=== PATIENT | male | born 1995 | race Caucasian/White ===

== ENCOUNTER 2017-03-14 21:18 | Emergency (ER) | payer OTHER ==
[~2017-03-14 21:18] MED LIST: ALBU8.5H IH; CEPH500C24 PO; FLUT1DIS28 IH; LOR5/325 PO
--- NOTE | 2017-03-14 21:23 | ER Report ---
History and Physical Time Seen By MD: 21:23 HPI/ROS CHIEF COMPLAINT: asthma exacerbation HISTORY OF PRESENT ILLNESS: This is a 22 year old male. He is having difficulty breathing and chest pain. Started earlier today and has been worsening. He thinks that this may have been some exposure to dust while working on the house , or from slight upper respiratory infection as well. Central chest tightness. No fevers or chills. Has had some nasal congestion. Mild sore throat. Used inhalers and breathing treatments at home without relief. Mild nausea. No vomiting. Allergies: Coded Allergies: shellfish derived (Verified Allergy, Unknown, 03/14/17) Home Meds Active Scripts Prednisone (PREDNISONE) 20 Mg Tablet, 60 MG PO QDAY for 4 Days, #12 TAB 0 Refills Prov:MANUELITO SCHNEIDER MD 03/14/17 Reported Medications [albuterol nebulizer] No Conflict Check 03/14/17 Albuterol Sulfate 90 Mcg/Act (PROAIR HFA 90 MCG/ACT) 8.5 Gm Hfa.aer.ad, 2 PUFF IH Q4-6H, INHALER 06/05/15 Reviewed Nurses Notes: Yes Hx Smoking: No Smoking Status: Never Smoker Hx Substance Use Disorder: No Hx Alcohol Use: No Constitutional Vital Sign - Last 24 Hours 03/14/17 03/14/17 03/14/17 03/14/17 21:20 21:24 21:30 21:33 Temp 98.7 Pulse 95 B/P (MAP) 152/92 (112) 152/92 136/98 (111) Pulse Ox 100 96 O2 Delivery Room Air Room Air 03/14/17 03/14/17 03/14/17 03/14/17 21:40 21:48 22:00 22:18 Pulse 85 92 87 Resp 16 B/P (MAP) 136/90 (105) Pulse Ox 98 95 03/14/17 03/14/17 03/14/17 03/14/17 22:30 22:48 23:00 23:18 Pulse 89 85 Resp 16 B/P (MAP) 125/77 (93) 122/64 (83) 118/72 (87) Pulse Ox 94 92 O2 Delivery Room Air Physical Exam General Appearance: The patient is alert. Having some acute distress due to the difficulty breathing, but no airway compromise. Eyes: Pupils are equal, round. No pallor, injection or icterus. ENT: Mucous membranes are moist. Normal oral mucosa. Posterior oropharynx with post nasal drainage. Nasal mucosa with some mucous and erythema. Normal tympanic membranes and canals. Neck: Supple and non tender. No lymphadenopathy. Respiratory: Lungs with expiratory wheezing. There are no retractions or accessory muscle use. Cardiovascular: Regular rate and rhythm. No murmurs, gallops or rubs. Normal capillary refill. Gastrointestinal: Abdomen is soft and non tender. Nondistended. Normal active bowel sounds. Neurological: Alert and oriented x3. Skin: Warm and dry. No rashes. DIFFERENTIAL DIAGNOSIS: After history and physical exam, differential diagnosis was considered for asthma exacerbation. Medical Decision Making Data Points Result Diagram: 03/14/17212703/14/172127 Laboratory Hematology Test 03/14/17 00:00 03/14/17 21:28 D-Dimer Quantitative (PE/DVT) < 0.27 ug/ml (0-0.50) Red Blood Count 5.57 M/uL (4.00-5.60) Mean Corpuscular Volume 87.6 fL (80.0-96.0) Mean Corpuscular Hemoglobin 30.8 pg (26.0-33.0) Mean Corpuscular Hemoglobin Concent 35.2 g/dL (32.0-36.0) Red Cell Distribution Width 13.1 % (11.5-14.5) Mean Platelet Volume 10.1 fL (7.2-11.1) Neutrophils (%) (Auto) 68.7 % (39.4-72.5) Lymphocytes (%) (Auto) 21.7 % (17.6-49.6) Monocytes (%) (Auto) 5.1 % (4.1-12.4) Eosinophils (%) (Auto) 3.9 % (0.4-6.7) Basophils (%) (Auto) 0.6 % (0.3-1.4) Nucleated RBC Relative Count (auto) 0.1 /100WBC Neutrophils # (Auto) 10.4 K/uL (2.0-7.4) Lymphocytes # (Auto) 3.3 K/uL (1.3-3.6) Monocytes # (Auto) 0.8 K/uL (0.3-1.0) Eosinophils # (Auto) 0.6 K/uL (0.0-0.5) Basophils # (Auto) 0.1 K/uL (0.0-0.1) Nucleated RBC Absolute Count (auto) 0.01 K/uL Sodium Level 139 mmol/L (137-145) Potassium Level 3.7 mmol/L (3.5-5.0) Chloride Level 105 mmol/L (98-107) Carbon Dioxide Level 22 mmol/L (22-30) Blood Urea Nitrogen 14 mg/dl (9-21) Creatinine 0.80 mg/dl (0.66-1.25) Glomerular Filtration Rate Calc > 60.0 Random Glucose 85 mg/dl (75-110) Lactate 1.8 mmol/L (0.7-2.1) Calcium Level 9.1 mg/dl (8.4-10.2) Total Bilirubin 0.6 mg/dl (0.2-1.3) Aspartate Amino Transf (AST/SGOT) 28 U/L (0-35) Alanine Aminotransferase (ALT/SGPT) 40 U/L (0-56) Alkaline Phosphatase 73 U/L (0-126) C-Reactive Protein < 0.5 mg/dl (<1.0) Total Protein 8.0 gm/dl (6.3-8.2) Albumin 4.7 g/dl (3.5-5.0) Influenza Virus Type A (PCR) Negative (NEGATIVE) Influenza Virus Type B (PCR) Negative (NEGATIVE) Chemistry Test 03/14/17 00:00 03/14/17 21:28 D-Dimer Quantitative (PE/DVT) < 0.27 ug/ml (0-0.50) White Blood Count 15.1 k/uL (4.5-11.0) Red Blood Count 5.57 M/uL (4.00-5.60) Hemoglobin 17.2 g/dL (14.0-18.0) Hematocrit 48.8 % (42.0-52.0) Mean Corpuscular Volume 87.6 fL (80.0-96.0) Mean Corpuscular Hemoglobin 30.8 pg (26.0-33.0) Mean Corpuscular Hemoglobin Concent 35.2 g/dL (32.0-36.0) Red Cell Distribution Width 13.1 % (11.5-14.5) Platelet Count 160 K/uL (150-450) Mean Platelet Volume 10.1 fL (7.2-11.1) Neutrophils (%) (Auto) 68.7 % (39.4-72.5) Lymphocytes (%) (Auto) 21.7 % (17.6-49.6) Monocytes (%) (Auto) 5.1 % (4.1-12.4) Eosinophils (%) (Auto) 3.9 % (0.4-6.7) Basophils (%) (Auto) 0.6 % (0.3-1.4) Nucleated RBC Relative Count (auto) 0.1 /100WBC Neutrophils # (Auto) 10.4 K/uL (2.0-7.4) Lymphocytes # (Auto) 3.3 K/uL (1.3-3.6) Monocytes # (Auto) 0.8 K/uL (0.3-1.0) Eosinophils # (Auto) 0.6 K/uL (0.0-0.5) Basophils # (Auto) 0.1 K/uL (0.0-0.1) Nucleated RBC Absolute Count (auto) 0.01 K/uL Glomerular Filtration Rate Calc > 60.0 Lactate 1.8 mmol/L (0.7-2.1) Calcium Level 9.1 mg/dl (8.4-10.2) Total Bilirubin 0.6 mg/dl (0.2-1.3) Aspartate Amino Transf (AST/SGOT) 28 U/L (0-35) Alanine Aminotransferase (ALT/SGPT) 40 U/L (0-56) Alkaline Phosphatase 73 U/L (0-126) C-Reactive Protein < 0.5 mg/dl (<1.0) Total Protein 8.0 gm/dl (6.3-8.2) Albumin 4.7 g/dl (3.5-5.0) Influenza Virus Type A (PCR) Negative (NEGATIVE) Influenza Virus Type B (PCR) Negative (NEGATIVE) Coagulation Test 03/14/17 00:00 D-Dimer Quantitative (PE/DVT) < 0.27 ug/ml EKG/Imaging Imaging 2 VIEWS CHEST INDICATION: Right-sided chest pain. COMPARISON: None available FINDINGS: Cardiomediastinal silhouette and pulmonary vessels within normal limits. There is no focal infiltrate or lobar consolidation. There is no pneumothorax or pleural effusion. No nodule. Upper abdomen is unremarkable. No acute bony abnormality. Mild scoliotic curvature to the spine. IMPRESSION: 1. No acute cardiopulmonary process. Report Dictated By: Dileep Quiles at 03/14/2017 10:46 PM ED Course/Re-evaluation Clinical Indication for ER IV: IV Access ED Course Moderate improvement with DuoNeb. Solu-Medrol IV given. Morphine for chest pain and Zofran for nausea. Re-evaluated and repeated breathing treatment and pain medicine. Later had resolution of symptoms and breathing easily. Other studies unremarkable as noted. Will continue with oral prednisone for the next 4 days and keep using breathing treatments. Decision to Disposition Date: Mar 14, 2017 Decision to Disposition Time: 23:12 Depart Departure Latest Vital Signs Vital Signs Date Time Temp Pulse Resp B/P (MAP) Pulse Ox O2 Delivery O2 Flow Rate FiO2 03/14/17 23:18 85 16 118/72 (87) 92 Room Air 03/14/17 21:24 98.7 Impression: Primary Impression: Asthma exacerbation Condition: Improved Disposition: HOME OR SELF-CARE New Scripts Prednisone (PREDNISONE) 20 Mg Tablet 60 MG PO QDAY for 4 Days, #12 TAB 0 Refills Prov: MANUELITO SCHNEIDER MD 03/14/17 Patient Instructions: Asthma (ED), Moderate and Severe Persistent Asthma (ED) Additional Instructions: Take Prednisone 20mg tablets, take 3 tablets once a day for 4 more days. Keep using your inhaler and breathing treatments. Follow-up with your primary care provider for re-evaluation. Problem Qualifiers Primary Impression: Asthma exacerbation Asthma severity: moderate Asthma persistence: persistent Qualified Codes: J45.41 - Moderate persistent asthma with (acute) exacerbation MANUELITO SCHNEIDER MD Mar 14, 2017 21:23
[2017-03-14] MEDS ORDERED: ALBUTEROL/IPRATROPIUM 3 ML NEB ONE (21:29)
[2017-03-14] MEDS ORDERED: ONDANSETRON 4 MG/2 ML VIAL IVP ONE (21:30)
[2017-03-14] MEDS ORDERED: MORPHINE 2 MG/ML SYR IVP ONE ×2 (21:30→22:25)
[2017-03-14] MEDS ORDERED: methylPREDNIS SUCC 125 MG/2ML IVP ONE (21:30)
[2017-03-14] MEDS ORDERED: ALBUTEROL/IPRATROPIUM 3 ML NEB NEB ONE (21:30)
[2017-03-14 21:38] LABS: PLATELET COUNT, AUTOMATED 160 K/uL (150-450)
[2017-03-14] MEDS ORDERED: albuterol nebulizer (21:46)
--- NOTE | 2017-03-14 22:51 | RADIOLOGY IMAGING REPORT ---
FACILITY: [facility] PATIENT NAME: Carlo Chance : 1995 MR: [id number] V: [id number] EXAM DATE: ORDERING PHYSICIAN: MANUELITO SCHNEIDER TECHNOLOGIST: Location: [facility] - [place] Patient: Carlo Chance : 1995 Visit/Account:[id number] Date of Sevice: 03/14/2017 2 VIEWS CHEST INDICATION: Right-sided chest pain. COMPARISON: None available FINDINGS: Cardiomediastinal silhouette and pulmonary vessels within normal limits. There is no focal infiltrate or lobar consolidation. There is no pneumothorax or pleural effusion. No nodule. Upper abdomen is unremarkable. No acute bony abnormality. Mild scoliotic curvature to the spine. IMPRESSION: 1. No acute cardiopulmonary process. Report Dictated By: Dileep Quiles at 03/14/2017 10:46 PM Report E-Signed By: Dileep Quiles at 03/14/2017 10:48 PM WSN:[id number]
[2017-03-14] MEDS ORDERED: PRED20TA6 PO (23:14)
[2017-03-14] MEDS ORDERED: predniSONE 20 MG TAB PO ONE (23:15)
[2017-03-14 23:18] VITALS: BP 118/72
== END 2017-03-14 23:20 | disposition home or self-care (01) ==
LOC: ER 21:27
DX: J45.41 Moderate persistent asthma with (acute) exacerbation (principal)
CPT/HCPCS: 71046; 83605; 85025; 85379; 86140; 87502; 94640; 96374; 96375; 96376; 99284; J2270; J2405; J2930; J7512; J7620; 82040; 82247; 82310; 82374; 82435; 82565; 82947; 84075; 84132; 84155; 84295; 84450; 84460; 84520

== ENCOUNTER 2017-09-16 18:02 | Emergency (ER) | payer OTHER ==
[~2017-09-16 18:02] MED LIST changes: +PRED20TA6 PO; +albuterol nebulizer
--- NOTE | 2017-09-16 18:29 | ER Report ---
History and Physical Time Seen By MD: 18:28 Hx. of Stated Complaint: 2 DAYS AGO PT REPORTS ONSET OF LLQ PAIN RADIATING ACROSS ABDOMEN AND BACK WORSE WITH MOVEMENT, VOMITING HPI/ROS CHIEF COMPLAINT: Left lower quadrant abdominal pain HISTORY OF PRESENT ILLNESS: Patient is a 22-year-old male here with complaints of left lower quadrant abdominal pain with radiation to the back which is worse with movement and is associated with vomiting. Patient is afebrile at time of evaluation, hemodynamically stable. Patient denies chest pain, shortness of breath, difficulty urinating, hematuria. REVIEW OF SYSTEMS: Constitutional: No fever, no chills. Eyes: No discharge. ENT: No sore throat. Cardiovascular: No chest pain, no palpitations. Respiratory: No cough, no shortness of breath. Gastrointestinal: + LLQ abdominal pain, + vomiting. Genitourinary: No hematuria. Musculoskeletal: No back pain. Skin: No rashes. Neurological: No headache. Allergies: Coded Allergies: shellfish derived (Verified Allergy, Unknown, 03/14/17) Home Meds Active Scripts Tramadol Hcl (TRAMADOL HCL) 50 Mg Tablet, 50 MG PO Q6H Y for PAIN, #6 TAB 0 Refills Prov:LILI TRAMMELL DO 09/16/17 Reported Medications [albuterol nebulizer] No Conflict Check 03/14/17 Albuterol Sulfate 90 Mcg/Act (PROAIR HFA 90 MCG/ACT) 8.5 Gm Hfa.aer.ad, 2 PUFF IH Q4-6H, INHALER 06/05/15 Discontinued Scripts Prednisone (PREDNISONE) 20 Mg Tablet, 60 MG PO QDAY for 4 Days, #12 TAB 0 Refills Prov:MANUELITO SCHNEIDER MD 03/14/17 Hx Smoking: No Smoking Status: Never Smoker Hx Substance Use Disorder: No Hx Alcohol Use: No Constitutional Vital Sign - Last 24 Hours 09/16/17 09/16/17 09/16/17 09/16/17 18:09 18:17 18:32 18:34 Temp 97.8 Pulse 73 ? Resp 16 B/P (MAP) 143/89 103/55 (71) Pulse Ox 95 O2 Delivery Room Air 09/16/17 09/16/17 09/16/17 09/16/17 18:47 19:00 19:02 19:17 Pulse 101 94 96 B/P (MAP) 128/80 (96) Pulse Ox 91 95 Physical Exam General Appearance: The patient is alert, has no immediate need for airway protection and no signs of toxicity. Eyes: Pupils equal and round no pallor or injection. ENT, Mouth: Mucous membranes are moist. Respiratory: There are no retractions, lungs are clear to auscultation. Cardiovascular: Regular rate and rhythm. Gastrointestinal: Abdomen is soft and + mildly tender, no masses, bowel sounds normal. Neurological: No focal deficits Skin: Warm and dry, no rashes. Musculoskeletal: Neck is supple non tender. Extremities are nontender, nonswollen and have full range of motion. DIFFERENTIAL DIAGNOSIS: After history and physical exam differential diagnosis was considered for abdominal pain including but not limited to appendicitis, cholecystitis, gastritis and urinary tract infection. Medical Decision Making Data Points Result Diagram: 09/16/17 1824 09/16/17 1824 Laboratory Hematology Test 09/16/17 18:24 Red Blood Count 5.25 M/uL (4.00-5.60) Mean Corpuscular Volume 88.4 fL (80.0-96.0) Mean Corpuscular Hemoglobin 31.1 pg (26.0-33.0) Mean Corpuscular Hemoglobin Concent 35.2 g/dL (32.0-36.0) Red Cell Distribution Width 12.9 % (11.5-14.5) Mean Platelet Volume 10.9 fL (7.2-11.1) Neutrophils (%) (Auto) 71.9 % (39.4-72.5) Lymphocytes (%) (Auto) 19.9 % (17.6-49.6) Monocytes (%) (Auto) 5.8 % (4.1-12.4) Eosinophils (%) (Auto) 1.9 % (0.4-6.7) Basophils (%) (Auto) 0.5 % (0.3-1.4) Nucleated RBC Relative Count (auto) 0.0 /100WBC Neutrophils # (Auto) 6.7 K/uL (2.0-7.4) Lymphocytes # (Auto) 1.9 K/uL (1.3-3.6) Monocytes # (Auto) 0.5 K/uL (0.3-1.0) Eosinophils # (Auto) 0.2 K/uL (0.0-0.5) Basophils # (Auto) 0.0 K/uL (0.0-0.1) Nucleated RBC Absolute Count (auto) 0.00 K/uL Urine Color Yellow Urine Clarity Clear Urine pH 5.0 pH (4.8-9.5) Urine Specific [place] 1.026 Urine Protein Negative mg/dL (NEGATIVE) Urine Glucose (UA) Negative mg/dL (NEGATIVE) Urine Ketones 20 mg/dL (NEGATIVE) Urine Blood Negative (NEGATIVE) Urine Nitrite Negative (NEGATIVE) Urine Bilirubin Negative (NEGATIVE) Urine Urobilinogen Negative mg/dL (0.2-1.9) Urine Leukocyte Esterase Negative (NEGATIVE) Urine RBC None /HPF (0-2/HPF) Urine WBC 1 /HPF (0-5/HPF) Urine Squamous Epithelial Cells None /LPF (</=FEW) Urine Bacteria Negative /HPF (NONE-FEW) Urine Mucus Few /HPF (NONE-FEW) Sodium Level 139 mmol/L (137-145) Potassium Level 3.5 mmol/L (3.5-5.0) Chloride Level 104 mmol/L (98-107) Carbon Dioxide Level 21 mmol/L (22-30) Blood Urea Nitrogen 10 mg/dl (9-21) Creatinine 0.80 mg/dl (0.66-1.25) Glomerular Filtration Rate Calc > 60.0 Random Glucose 94 mg/dl (75-110) Calcium Level 9.2 mg/dl (8.4-10.2) Total Bilirubin 0.9 mg/dl (0.2-1.3) Aspartate Amino Transf (AST/SGOT) 30 U/L (0-35) Alanine Aminotransferase (ALT/SGPT) 25 U/L (0-56) Alkaline Phosphatase 52 U/L (0-126) Total Protein 7.3 g/dl (6.3-8.2) Albumin 4.5 g/dl (3.5-5.0) Lipase 69 U/L (23-300) Chemistry Test 09/16/17 18:24 White Blood Count 9.3 k/uL (4.5-11.0) Red Blood Count 5.25 M/uL (4.00-5.60) Hemoglobin 16.3 g/dL (14.0-18.0) Hematocrit 46.4 % (42.0-52.0) Mean Corpuscular Volume 88.4 fL (80.0-96.0) Mean Corpuscular Hemoglobin 31.1 pg (26.0-33.0) Mean Corpuscular Hemoglobin Concent 35.2 g/dL (32.0-36.0) Red Cell Distribution Width 12.9 % (11.5-14.5) Platelet Count 144 K/uL (150-450) Mean Platelet Volume 10.9 fL (7.2-11.1) Neutrophils (%) (Auto) 71.9 % (39.4-72.5) Lymphocytes (%) (Auto) 19.9 % (17.6-49.6) Monocytes (%) (Auto) 5.8 % (4.1-12.4) Eosinophils (%) (Auto) 1.9 % (0.4-6.7) Basophils (%) (Auto) 0.5 % (0.3-1.4) Nucleated RBC Relative Count (auto) 0.0 /100WBC Neutrophils # (Auto) 6.7 K/uL (2.0-7.4) Lymphocytes # (Auto) 1.9 K/uL (1.3-3.6) Monocytes # (Auto) 0.5 K/uL (0.3-1.0) Eosinophils # (Auto) 0.2 K/uL (0.0-0.5) Basophils # (Auto) 0.0 K/uL (0.0-0.1) Nucleated RBC Absolute Count (auto) 0.00 K/uL Urine Color Yellow Urine Clarity Clear Urine pH 5.0 pH (4.8-9.5) Urine Specific [place] 1.026 Urine Protein Negative mg/dL (NEGATIVE) Urine Glucose (UA) Negative mg/dL (NEGATIVE) Urine Ketones 20 mg/dL (NEGATIVE) Urine Blood Negative (NEGATIVE) Urine Nitrite Negative (NEGATIVE) Urine Bilirubin Negative (NEGATIVE) Urine Urobilinogen Negative mg/dL (0.2-1.9) Urine Leukocyte Esterase Negative (NEGATIVE) Urine RBC None /HPF (0-2/HPF) Urine WBC 1 /HPF (0-5/HPF) Urine Squamous Epithelial Cells None /LPF (</=FEW) Urine Bacteria Negative /HPF (NONE-FEW) Urine Mucus Few /HPF (NONE-FEW) Glomerular Filtration Rate Calc > 60.0 Calcium Level 9.2 mg/dl (8.4-10.2) Total Bilirubin 0.9 mg/dl (0.2-1.3) Aspartate Amino Transf (AST/SGOT) 30 U/L (0-35) Alanine Aminotransferase (ALT/SGPT) 25 U/L (0-56) Alkaline Phosphatase 52 U/L (0-126) Total Protein 7.3 g/dl (6.3-8.2) Albumin 4.5 g/dl (3.5-5.0) Lipase 69 U/L (23-300) Urinalysis Test 09/16/17 18:24 Urine Color Yellow Urine Clarity Clear Urine pH 5.0 pH (4.8-9.5) Urine Specific [place] 1.026 Urine Protein Negative mg/dL (NEGATIVE) Urine Glucose (UA) Negative mg/dL (NEGATIVE) Urine Ketones 20 mg/dL (NEGATIVE) Urine Blood Negative (NEGATIVE) Urine Nitrite Negative (NEGATIVE) Urine Bilirubin Negative (NEGATIVE) Urine Urobilinogen Negative mg/dL (0.2-1.9) Urine Leukocyte Esterase Negative (NEGATIVE) Urine RBC None /HPF (0-2/HPF) Urine WBC 1 /HPF (0-5/HPF) Urine Squamous Epithelial Cells None /LPF (</=FEW) Urine Bacteria Negative /HPF (NONE-FEW) Urine Mucus Few /HPF (NONE-FEW) EKG/Imaging Imaging EXAMINATION: CT ABDOMEN AND PELVIS WITHOUT CONTRAST COMPARISON: None. HISTORY: Left lower quadrant abdominal pain. PROCEDURE: Multiplanar noncontrast CT of the abdomen and pelvis. One of the following dose optimization techniques was utilized in the performance of this exam: Automated exposure control; adjustment of the mA and/or kV according to the patient's size; or use of an iterative reconstruction technique. Specific details can be referenced in the facility's radiology CT exam operational policy. FINDINGS: Evaluation of the solid and viscus parenchymal organs and vascular structures is limited without the benefit of IV contrast. Visualized thorax: No acute findings. Small bilateral Bochdalek hernias are incidentally noted. Liver: Noncontrast imaging of the visualized liver is within normal limits. Gallbladder and biliary system: Negative Spleen: Negative. Pancreas: Noncontrast imaging of the pancreas is within normal limits. Adrenal glands: Negative. Kidneys and bladder: No radiopaque urolithiasis or evidence of an obstructive uropathy. Urinary bladder is unremarkable. Vessels: Within normal limits. Bowel and mesentery: Stomach, small bowel, and appendix are unremarkable. Small amount of stool in the colon. No colonic diverticula are identified. No inflammation. Pelvic organs: Negative. Lymph nodes: No adenopathy. Free air/free fluid: None. Abdominal wall and osseous structures: Negative. IMPRESSION: No noncontrast CT findings of acute disease in the abdomen or pelvis. ED Course/Re-evaluation ED Course Patient is a 22-year-old male here with complaints of left lower quadrant abdominal pain with radiation to the back. CT AP showed no acute findings. Patient was given Zofran, fluid bolus, Toradol with significant relief of symptoms. Labs showed no acute findings. Patient was given a prescription for tramadol for pain control. Patient was stable at time of discharge. Decision to Disposition Date: Sep 16, 2017 Decision to Disposition Time: 19:33 Depart Departure Latest Vital Signs Vital Signs Date Time Temp Pulse Resp B/P (MAP) Pulse Ox O2 Delivery O2 Flow Rate FiO2 09/16/17 19:17 96 09/16/17 19:02 95 09/16/17 19:00 128/80 (96) 09/16/17 18:09 97.8 16 Room Air Impression: Primary Impression: Abdominal pain Condition: Improved Disposition: HOME OR SELF-CARE New Scripts Tramadol Hcl (TRAMADOL HCL) 50 Mg Tablet 50 MG PO Q6H Y for PAIN, #6 TAB 0 Refills Prov: LILI TRAMMELL DO 09/16/17 Patient Instructions: Abdominal Pain (ED), Tramadol (By mouth) Additional Instructions: You may take 1 tablet of tramadol every 6-8 hours as needed for pain. Please follow-up with your family doctor in the next 3 days. Please return promptly if you develop worsening abdominal pain, nausea, inability to tolerate oral intake , fevers. LILI TRAMMELL DO Sep 16, 2017 18:29
[2017-09-16] MEDS ORDERED: KETOROLAC 30 MG/ML VIAL IVP ONE (18:35)
[2017-09-16] MEDS ORDERED: NS(*) 0.9% 1000 ML BAG 1,000 ML IV ONE (18:35)
[2017-09-16] MEDS ORDERED: ONDANSETRON 4 MG/2 ML VIAL IVP ONE (18:35)
[2017-09-16 18:48] LABS: PLATELET COUNT, AUTOMATED 144 K/uL (150-450)
[2017-09-16 19:00] VITALS: BP 128/80
--- NOTE | 2017-09-16 19:18 | RADIOLOGY IMAGING REPORT ---
FACILITY: [facility] - [place] PATIENT NAME: Carlo Chance : 1995 MR: [id number] V: [id number] EXAM DATE: ORDERING PHYSICIAN: LILI TRAMMELL TECHNOLOGIST: Location: [facility] - [place] Patient: Carlo Chance : 1995 Visit/Account:[id number] Date of Sevice: 09/16/2017 EXAMINATION: CT ABDOMEN AND PELVIS WITHOUT CONTRAST COMPARISON: None. HISTORY: Left lower quadrant abdominal pain. PROCEDURE: Multiplanar noncontrast CT of the abdomen and pelvis. One of the following dose optimizati on techniques was utilized in the performance of this exam: Automated exposure control; adjustment of the mA and/or kV according to the patient's size; or use of an iterative reconstruction technique. Specific details can be referenced in the facility's radiology CT exam operational policy. FINDINGS: Evaluation of the solid and viscus parenchymal organs and vascular structures is limited wi thout the benefit of IV contrast. Visualized thorax: No acute findings. Small bilateral Bochdalek hernias are incidentally noted. Liver: Noncontrast imaging of the visualized liver is within normal limits. Gallbladder and biliary system: Negative Spleen: Negative. Pancreas: Noncontrast imaging of the pancreas is within normal limits. Adrenal glands: Negative. Kidneys and bladder: No radiopaque urolithiasis or evidence of an obstructive uropathy. Urinary blad ana luisa is unremarkable. Vessels: Within normal limits. Bowel and mesentery: Stomach, small bowel, and appendix are unremarkable. Small amount of stool in th e colon. No colonic diverticula are identified. No inflammation. Pelvic organs: Negative. Lymph nodes: No adenopathy. Free air/free fluid: None. Abdominal wall and osseous structures: Negative. IMPRESSION: No noncontrast CT findings of acute disease in the abdomen or pelvis. Report Dictated By: See Waters MD at 09/16/2017 7:09 PM Report E-Signed By: See Waters MD at 09/16/2017 7:15 PM [id number]
[2017-09-16] MEDS ORDERED: TRAM-420 PO (19:22)
== END 2017-09-16 19:31 | disposition home or self-care (01) ==
LOC: ER 18:29
DX: R10.32 Left lower quadrant pain (principal)
CPT/HCPCS: 74176; 81001; 83690; 85025; 96361; 96374; 96375; 99284; J1885; J2405; J7030; 82040; 82247; 82310; 82374; 82435; 82565; 82947; 84075; 84132; 84155; 84295; 84450; 84460; 84520